=== PATIENT | female | born 1945 | race Caucasian/White ===

== ENCOUNTER 2022-04-12 10:08 | Emergency (ER) | payer MEDICARE ==
[2022-04-12] MEDS ORDERED: Bacitracin Oint 1 GM U/D Packet TOP ONE (11:11)
[2022-04-12] MEDS ORDERED: Diphtheria,Pertussis(Acell),Tetanus Vaccine 0.5 ML Syringe IM ONE (11:11)
== END 2022-04-12 11:41 | disposition home or self-care (01) ==
LOC: JP.ED 10:08
DX: S61.451A Open bite of right hand, initial encounter (principal); I10 Essential (primary) hypertension; E03.9 Hypothyroidism, unspecified; Z88.5 Allergy status to narcotic agent; Z79.899 Other long term (current) drug therapy; Z23 Encounter for immunization; W54.0XXA Bitten by dog, initial encounter
CPT/HCPCS: 90471; 90715; 99282; 99282-25